=== PATIENT | female | born 1990 | race Caucasian/White ===

== ENCOUNTER 2017-05-26 12:25 | Emergency (ER) | payer BC, OTHER ==
[2017-05-26] MEDS ORDERED: LIDOCAINE 1% / SOD BICARB 8.4% 20 ML VIAL. IJ ONE (13:00)
[2017-05-26 13:04] VITALS: BP 111/71
--- NOTE | 2017-05-26 13:52 | PHYS DOC ---
Past Medical History Past Medical History: Hyperthyroid Past Surgical History: Alcohol Use: None Drug Use: None Adult General Chief Complaint Chief Complaint: LACERATION/AVULSION HPI HPI Patient is a 26 year old female who presents with right pinky finger laceration. Patient states she cut herself after accidentally hitting a wall. Patient is right-handed. Review of Systems Review of Systems Constitutional: Denies fever or chills [] Musculoskeletal: Denies back pain or joint pain [] Integument: right pinky finger laceration. Neurologic: Denies headache, focal weakness or sensory changes [] Current Medications Current Medications Current Medications Medications (Trade) Dose Ordered Sig/Johnathan Start Time Stop Time Status Last Admin Dose Admin Lidocaine/Sodium Bicarbonate (Buffered Lidocaine 1%) 20 ml 1X ONCE 05/26/17 13:00 05/26/17 13:01 DC Allergies Allergies Allergies Coded Allergies Type Severity Reaction Last Updated Verified No Known Drug Allergies 08/29/14 No Physical Exam Physical Exam Constitutional: Well developed, well nourished, no acute distress, non-toxic appearance. [] Skin: Right pinky finger proximal end also aspect with a laceration approximately 2 cm long. There is no tendon involvement. Full range of motion to the right pinky finger including flexion and extension at the MIP PIP and DIP joints. +2 right radial pulse. Cap refill less than 2 seconds the right pinky finger. Adequate ulnar sensation to the right pinky finger. Back: No tenderness, no CVA tenderness. [] Extremities: No tenderness, no cyanosis, no clubbing, ROM intact, no edema. [] Neurologic: Alert and oriented X 3, normal motor function, normal sensory function, no focal deficits noted. [] Psychologic: Affect normal, judgement normal, mood normal. [] Current Patient Data Vital Signs Vital Signs Date Time Temp Pulse Resp B/P (MAP) Pulse Ox O2 Delivery O2 Flow Rate FiO2 05/26/17 13:04 98.1 70 16 100 Room Air 98.1 EKG EKG [] Radiology/Procedures Radiology/Procedures Indication: [] Right pinky finger laceration Procedure: The patient was placed in the appropriate position and anesthesia around the laceration was 1% buffered lidocaine, the laceration was explored for foreign objects, none was found. The laceration was cleaned with the 100 ML of normal saline and Betadine. The laceration was closed with 4 interrupted sutures using 5. 0 Ethilon. The wound was covered with Band-Aid. Total repaired wound length: Approximately 2 cm long Other Items:none The patient tolerated the procedure well Complications: none Course & Med Decision Making Course & Med Decision Making Pertinent Labs and Imaging studies reviewed. (See chart for details) Patient has right pinky finger laceration. Laceration was closed by me as noted in procedures. Tetanus is up-to-date. Provided wound care instructions as well as return precautions. Discharged in stable condition. Dragon Disclaimer Dragon Disclaimer This electronic medical record was generated, in whole or in part, using a voice recognition dictation system. Departure Departure Impression: Primary Impression: Finger laceration Disposition: 01 HOME, SELF-CARE Condition: STABLE Referrals: UNKNOWN PCP NAME (PCP) Follow-up with the emergency room or your own doctor in 7-10 days for suture removal Patient Instructions: Fingertip Laceration Additional Instructions: You were seen for right pinky finger laceration. Keep the area clean and dry. You can shower. Apply Neosporin to the area twice a day. Monitor the area for signs and symptoms of infection including but not limited to increased redness warmth or odor/yellow drainage from the area and return to the ED or see a doctor if they occur. Come back to the ED follow-up with your doctor in 7-10 days for suture removal. Problem Qualifiers Primary Impression: Finger laceration Encounter type: initial encounter Finger: little finger Damage to nail status: without damage Foreign body presence: without foreign body Laterality: right Qualified Codes: S61.216A - Laceration without foreign body of right little finger without damage to nail, initial encounter PAOLA WIGGINS [employer] May 26, 2017 13:52
== END 2017-05-26 13:50 | disposition home or self-care (01) ==
LOC: ER 12:25
DX: S61.216A Laceration without foreign body of right little finger without damage to nail, initial encounter (principal); E05.90 Thyrotoxicosis, unspecified without thyrotoxic crisis or storm; W45.8XXA Other foreign body or object entering through skin, initial encounter; Y93.89 Activity, other specified; Y99.8 Other external cause status; Y92.89 Other specified places as the place of occurrence of the external cause
CPT/HCPCS: 12001; 99283-25